=== PATIENT | female | born 1955 | race Caucasian/White ===

== ENCOUNTER 2019-05-11 15:37 | Emergency (ER) | payer MEDICARE, MEDICAID ==
[~2019-05-11] VITALS: Ht 157.5 cm; Wt 64.0 kg
[~2019-05-11 15:37] MED LIST: NO MEDICATIONS
[2019-05-11 15:43] VITALS: BP 128/67
[2019-05-11] MEDS ORDERED: LIDO20SO16 PO (15:59)
== END 2019-05-11 16:03 | disposition home or self-care (01) ==
LOC: ER 15:37
DX: K12.0 Recurrent oral aphthae (principal); E78.00 Pure hypercholesterolemia, unspecified; F12.90 Cannabis use, unspecified, uncomplicated; Z98.890 Other specified postprocedural states; Z90.710 Acquired absence of both cervix and uterus; Z85.3 Personal history of malignant neoplasm of breast; Z88.8 Allergy status to other drugs, medicaments and biological substances
CPT/HCPCS: 99282

== ENCOUNTER 2022-01-06 18:43 | Emergency (ER) | payer MEDICARE, MEDICAID ==
[~2022-01-06] VITALS: Ht 157.5 cm; Wt 63.6 kg
[~2022-01-06 18:43] MED LIST changes: +LIDO20SO16 PO
[2022-01-06 18:50] VITALS: BP 153/67
== END 2022-01-06 21:25 | disposition left against medical advice (07) ==
LOC: ER 18:44
DX: R20.2 Paresthesia of skin (principal); Z53.21 Procedure and treatment not carried out due to patient leaving prior to being seen by health care provider

== ENCOUNTER 2022-07-28 18:31 | Emergency (ER) | payer MEDICARE, MEDICAID ==
[~2022-07-28] VITALS: Ht 157.5 cm; Wt 60.0 kg
[2022-07-28 20:10] VITALS: BP 142/65
--- NOTE | 2022-07-28 22:03 | NUR ---
PT CAME TO WINDOW AND STATED SHE WAS LEAVING THE ER TO GO HOME. REMOVING FROM [facility].
== END 2022-07-28 22:05 | disposition left against medical advice (07) ==
LOC: ER 18:31
DX: J00 Acute nasopharyngitis [common cold] (principal); R05.9 Cough, unspecified; R09.89 Other specified symptoms and signs involving the circulatory and respiratory systems; Z53.21 Procedure and treatment not carried out due to patient leaving prior to being seen by health care provider

== ENCOUNTER 2025-08-06 13:19 | Outpatient (CLI) | payer MEDICARE, MEDICAID ==
--- NOTE | 2025-08-06 15:32 | RADIOLOGY REPORT ---
Procedure: CT CT CHEST LOW DOSE Reason for study/Clinical History: NICOTINE DEPENDENCE, CIGARETTES, IN REMISSION COMPARISON: None TECHNIQUE: Multidetector CT of the chest was performed from the lung apices to the upper abdomen without the use of intravenous contract. Axial, coronal and sagittal multiplanar reformats were performed. Radiation Dose Information: CT Dose: CTDI volume is 2.6 mGy. Dose-length product is 68 mGy*cm The dose indicators for CT are the volume Computed Tomography (CT) Dose Index (CTDIvol) and the Dose Length Product (DLP), and are measured in units of mGy and mGy-cm, respectively. These indicators are not patient dose, but values generated from the CT scanner acquisition factors. The report includes radiation exposure data for exposures received during this examination. FINDINGS: Lower neck:Normal thyroid. Lungs: Mild biapical scarring. Mild paraseptal emphysema. Dependent atelectasis. No suspicious pulmonary nodules Heart/Vascular Structures: Borderline cardiomegaly. Vascular calcifications of the aorta. Coronary artery calcifications. Lymph Nodes: No adenopathy Pleura: No pleural effusion or significant pneumothorax. Musculoskeletal: Multilevel degenerative changes of the spine. Soft tissues: Normal. Upper abdomen: Limited portions of the upper abdomen are unremarkable. IMPRESSION: No acute intrathoracic abnormality. No suspicious pulmonary nodules. Lung-RADS Category 1: Negative. Continue annual screening with low dose CT in 12 months. LUNG RADS Category 1: Continue annual screening with LDCT
== END 2025-08-06 23:59 | disposition home or self-care (01) ==
LOC: RAD 13:19
PROVIDERS: ATTEND Family Medicine
DX: Z12.2 Encounter for screening for malignant neoplasm of respiratory organs (principal); J98.4 Other disorders of lung; J98.11 Atelectasis; F17.211 Nicotine dependence, cigarettes, in remission; I70.0 Atherosclerosis of aorta; I25.10 Atherosclerotic heart disease of native coronary artery without angina pectoris; J43.9 Emphysema, unspecified
CPT/HCPCS: 71271